=== PATIENT | female | born 1945 | race Caucasian/White ===

== ENCOUNTER 2016-08-12 05:36 | Day surgery (SDC) | payer MEDICARE, OTHER ==
[~2016-08-12 05:36] MED LIST: ACET500CAP PO; ACIPHEX PO; ADVAIR100 INH; ALEVE220 MG PO; COREG25 PO; CRESTOR20 MG PO; IMITREX50 PO; LEVOTHYROXIN125 MCG PO; LEVOTHYROXIN25 MCG PO; MAX25 PO; MOBIC7.5 PO; PROAIR HFA INH
[2016-09-23] MEDS ORDERED: CLARIT10 PO (14:56)
== END 2016-08-12 09:04 | disposition home or self-care (01) ==
LOC: SDC 05:36
PROVIDERS: Orthopaedic Surgery
PROC: 3E0S3BZ Introduction of Anesthetic Agent into Epidural Space, Percutaneous Approach (ICD-10-PCS; 2016-08-12)
PROC: 3E0S33Z Introduction of Anti-inflammatory into Epidural Space, Percutaneous Approach (ICD-10-PCS; principal; 2016-08-12 08:00)
DX: M54.16 Radiculopathy, lumbar region (principal); Z98.1 Arthrodesis status; Z98.890 Other specified postprocedural states
CPT/HCPCS: J2250; J2405; J3010; Q9967

== ENCOUNTER 2016-09-28 07:00 | Day surgery (SDC) | payer MEDICARE, OTHER ==
[2016-09-22 16:14] LABS: HEMATOCRIT 36.8 % (36.0-48.0); HEMOGLOBIN 12.2 g/dL (12.0-16.0)
[2016-09-22 16:26] LABS: BUN (BLOOD UREA NITROGEN) 22 MG/DL (6-23); CALCIUM, SERUM 9.1 MG/DL (8.5-10.4); CHLORIDE, SERUM 103 MMOL/L (96-112); CO2 (CARBON DIOXIDE) 25 MMOL/L (24-34); CREATININE 0.92 MG/DL (0.55-1.02); GFR AFRICAN AMERICAN 73 ML/MIN (>=60); GFR NON AFRICAN AMERICAN 63 ML/MIN (>=60); GLUCOSE, SERUM 104 MG/DL (60-99)
[2016-09-22 16:29] LABS: POTASSIUM, SERUM 4.3 MMOL/L (3.5-5.3); SODIUM, SERUM 131 MMOL/L (135-148)
--- NOTE | ~2016-09-28 | OP ---
Record Of Operation [facility] [address] [place]. [address] NAME: COMPA HILARIO : 43 STATUS : REG [facility] PAT#: [id number] AGE: 70 ADM/REG DATE : 09/28/16 MR#: [id number] REPORT SERV DATE: 09/28/16 DICTATED BY: SANDIP SUH DATE: 09/28/16 REPORT STATUS : Draft TRANSCRIBED BY: HEATHER DATE: 09/28/16 DATE OF PROCEDURE: 09/28/2016 PREOPERATIVE DIAGNOSES: Left-sided L2-3 and L3-4 disk herniation, foraminal stenosis, and lumbar radiculopathy. POSTOPERATIVE DIAGNOSES: Left-sided L2-3 and L3-4 disk herniation, foraminal stenosis, and lumbar radiculopathy. PROCEDURES: Left-sided L2-3 and L3-L4 microdiskectomy, use of operative microscope, minimal access spine technology, intraoperative O-arm CT scan with computer navigation with decompression of the left L2 through L4 nerve roots. ANESTHESIA: General. ESTIMATED BLOOD LOSS: 10 mL. COMPLICATIONS: None. INDICATIONS: The patient is a pleasant 70-year-old, who had previously undergone a right- sided microdiskectomy, done well with the right side, and unfortunately developed left-sided symptoms predominantly on the left anterior thigh. After failing conservative treatment including therapy and epidural injections, she elects to proceed with surgery. DESCRIPTION OF PROCEDURE: I identified the patient in the holding area. Consent was obtained. Went to the operating room. Underwent general anesthesia with endotracheal intubation. Prepped and draped in the usual sterile fashion. Operative safety pause was performed, then we proceeded with surgery. O-arm registration frame was placed in the iliac crest. O-arm was brought in for intraoperative CT scan. Computer registration materials were verified. Under computer guidance, a left longitudinal incision was made over the L2- L4 level taken down through the fascial layer. Tube dilators were used to minimally invasively dissect down to the left L2-3 interspace. Operative microscope was brought in. A dariel was used to perform a laminotomy, Rosalia performed a foraminotomy. Disk was incised with a knife and free disk material was removed with the pituitary. The L2 and L3 nerve roots were free of compression, and then this was repeated again at the L3-L4 level. Each of the nerves was free of compression. Irrigation was performed. Hemostasis was achieved. 40 mg Depo-Medrol was injected over the nerve roots. Layered closure was performed. Sterile dressings were applied. The patient was awoken and extubated, and taken to the recovery room in stable condition. OPERATIVE FINDINGS: Left L2-4 disk herniation. NINO/HEATHER Record Of Operation [address] [address] NAME: COMPA HILARIO : 43 STATUS : REG [facility] PAT#: [id number] AGE: 70 ADM/REG DATE : 09/28/16 MR#: [id number] REPORT SERV DATE: 09/28/16 DICTATED BY: SANDIP SUH DATE: 09/28/16 REPORT STATUS : Draft TRANSCRIBED BY: HEATHER DATE: 09/28/16 Sandip Suh DO / [id number] CC: DO Manjinder Hamilton M.D.
[~2016-09-28 07:00] MED LIST changes: +CLARIT10 PO
== END 2016-09-28 16:26 | disposition home or self-care (01) ==
LOC: SDC 07:00
PROVIDERS: Orthopaedic Surgery
PROC: 01NB0ZZ Release Lumbar Nerve, Open Approach (ICD-10-PCS; 2016-09-28)
PROC: 0SB20ZZ Excision of Lumbar Vertebral Disc, Open Approach (ICD-10-PCS; principal; 2016-09-28 08:45)
DX: M11.28 Other chondrocalcinosis, vertebrae (principal); M54.16 Radiculopathy, lumbar region; M48.06 Spinal stenosis, lumbar region; I10 Essential (primary) hypertension; E03.9 Hypothyroidism, unspecified; J45.909 Unspecified asthma, uncomplicated; E78.5 Hyperlipidemia, unspecified; Z79.899 Other long term (current) drug therapy; Z79.51 Long term (current) use of inhaled steroids; Z88.5 Allergy status to narcotic agent
CPT/HCPCS: 80048; 85014; 85018; 88304; 88311; 93005; J0690; J1030; J1170; J2250; J2405; J2710; J3010